=== PATIENT | male | born 1965 | race Caucasian/White ===

== ENCOUNTER 2025-06-10 09:01 | Outpatient (AMB) | payer BC, SELFPAY ==
--- NOTE | 2025-06-10 09:04 | A.PHYSOV_ITS ---
Vital Signs 06/10/25 09:07 Height 5 ft 11 in Weight 245 lb BMI 34.2 Intake Visit Reasons: FOLLOW UP AFTER INJECTION 04/25/2025 Intake Note: Patient is a 59 year old male here for follow up after 04/25/25 L5-S1 ALEJANDRO. Resource Economist Required: No Allergies No Known Allergies Allergy (Verified 06/10/25 09:04) HPI Comments Details: History of Present Illness The patient is a 59-year-old individual presenting with severe sciatica and spinal stenosis. The patient reports experiencing significant relief for two days following an L5-S1 ALEJANDRO on 04/25/2025, with pain reduction by approximately 90%. However, on the third day, the patient experienced a resurgence of pain, described as sciatica, which is constant and predominantly affects the left side, occasionally wrapping around to the front. The patient rates the current pain level as 7 out of 10, noting that it can intensify suddenly, causing near falls. The patient has been taking a combination of Tylenol and Advil, but requires large quantities, which adversely affects the stomach. The patient has undergone multiple spinal injections, with at least a dozen administered previously, but reports limited success in managing the pain. The MRI review indicates severe neuroforaminal stenosis narrowing at two levels, contributing to the patient's symptoms. The patient has a history of a laminectomy performed in 2003. Patient is requesting referral to Neurosurgery. He would also like to consider medication for pain. Patient has failed conservative treatment. Pain Description - Onset: Pain relief for two days followed by resurgence on the third day - Quality: Described as sciatica, constant, and severe - Location: Predominantly affects the left side, occasionally wrapping around to the front - Exacerbating factors: Sudden intensification causing near falls - Relieving factors: Temporary relief from unspecified intervention Procedure: L5-S1 ALEJANDRO 04/25/2025 90% reduction of his pain for 2 days [facility] Surgical History History of cataract surgery (Unknown) H/O shoulder surgery (Unknown) History of neck surgery (Unknown) History of back surgery (Unknown) Hx of laminectomy Social History Alcohol intake: current Alcohol intake frequency: does not drink Patient Tobacco Use Status: Never used Tobacco Use of substances other than those prescribed or required for medical reasons: No Review of Systems Narrative Review of Systems - Musculoskeletal: Reports weakness in both legs, predominantly on the left side - Neurological: Reports sciatica with pain radiating to the left side - Gastrointestinal: Reports stomach issues due to medication Physical Exam Exam Exam: Physical Exam Lumbar Spine: Examination of his lumbar spine, there is no visible swelling or deformity. He is tender to the left lower lumbar facets. He has limited range of motion of the lumbar spine secondary to pain. Special Tests: Lhermittes sign was negative Heel Toe walk is normal Left straight leg raise: Positive left Right straight leg raise: Negative Special tests Vandana test is negative Ganslen's test is negative SI Joint compression test negative Sulema test negative Piriformis stretch is negative Lower Extremities: Full range of motion bilateral lower extremities. No calf pain or edema. Neuro: Sensation: Intact to lower extremities bilaterally Strength L2 (Psoas): 5/5 on the left and 5/5 on the right. L3 (Quads): 5/5 on the left and 5/5 on the right. L4 (Ant tibialis): 5/5 on the left and 5/5 on the right. L5 (EHL) 5/5 on the left and 5/5 on the right. S1 (Gastroc): 5/5 on the left and 5/5 on the right. DTR L4: (Patellar) Left 1 Right 1 S1: (Achilles) Left 1 Right 1 Babinski Downgoing No pathologic clonus. No involuntary movement. Vital Signs: BMI result Body Mass Index 34.2 Assessment & Plan Assessment & Plan (1) Lumbar radiculopathy: Code(s): M54.16 - Radiculopathy, lumbar region Category: Medical (2) Lumbar spondylosis: Code(s): M47.816 - Spondylosis without myelopathy or radiculopathy, lumbar region Category: Medical Plan Pain Management - Affect: Pain significantly impacts daily life and causes distress - Analgesia: Current pain level is 7/10; uses Tylenol and Advil in large quantities - Adverse Effects: Stomach issues due to high intake of pain medication - Activities of Daily Living: Pain causes near falls and affects mobility - Aberrant Drug Related Behaviors: None reported Plan Patient was informed and verbally consented to the use of an ambient scribe for clinic note documentation during this visit. 1. Sciatica The patient has been experiencing severe sciatica, predominantly affecting the left side. Patient did not respond to L5-S1 ALEJANDRO. Recommend trial of left L4-5, L5-S1 transforaminal injection and he is eager to proceed. We will obtain prior authorization for his injection contact him once we have done so. Patient is requesting referral to Neurosurgery which I will place today. I recommend prednisone taper to decrease inflammation. He will not take anti-inflammatories with the prednisone. Uncertain we discussed Thank you for allowing me to participate in the care of your patient. Orders: Referrals Neurosurgery Referral M47.816 - Spondylosis without myelopathy or radiculopathy, lumbar region, M54.16 - Radiculopathy, lumbar region Medications: New prednisone 3 tabs po for 3 days, 2 tabs po for 3 days, 1 tab po X3 days 20 mg PO DAILY 9 tabs 0RF 9 days M47.816 - Spondylosis without myelopathy or radiculopathy, lumbar region, M54.16 - Radiculopathy, lumbar region Coding Level of Care Code Est Pt Level 4 (44343) Diagnoses Lumbar radiculopathy M54.16 Lumbar spondylosis M47.816
[2025-06-10 09:07] VITALS: BMI 34.2
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
--- OUTSIDE RECORDS SUMMARY | 2025-06-10 09:40 | XMS_ITS | Encounter Summary ---
Author Organization [facility] Address [address] [place] [address] Care Team Providers Care Senior Controller Name Role Phone Lisa Bedoya Primary Care Provider [phone] Encounter Details Date Type Department Care Team (Late st Contact Info) Description 01/10/2022 Orders Only [facility] Department of Comprehensive Spine Services [address] [place] [address] Shun Camacho MD [address] [facility] [id number] Pre-op testing (Primary Dx) Social History Tobacco Use Types Packs/Day Years Used Date Smoking Tobacco: Former Cigarettes Q uit: 1989 Smokeless Tobacco: Never Alcohol Use Standard Drinks/Week Comments Yes 0 (1 standard drink = 0.6 oz pur e alcohol) Rarely Sex and Gender Information Value Date Recorded Sex Assigned at Not on file Legal Sex Male 10:45 AM EDT Gender Identity Not on file Sexual Orientation Not on file COVID-19 Exposure Response Date Recorded In the last 10 days, have yo u been in contact with someone who was confirmed or suspected to have Coronavirus/COVID-19? No / Unsure 12/23/2021 1:45 PM EDT documented as of this encounter Plan of Treatment Not on file documented as of this encounter Results * SARS-CoV-2, NAAT (01/19/2022 9:27 AM EDT) SARS-CoV-2 TMA (Vic) Not Detected Not Detected 01/19/2022 4:14 PM EDT [facility] Comment: This test has not been FDA cleared or approved. This test has been authorized by the FDA under an EUA for use by authorized laboratories. Testing is limited to laboratories certified under the Clinical Laboratory Improvement Amendments of 1988 (CLIA), 42 U.S.C. 263a, to perform high complexity tests. The test is only authorized for the duration of the declaration that circumstances exist justifying the authorization of emergency use of in vitro diagnostic tests for detection and/or diagnosis of COVID-19 under Section 564(b)(1) of the Act, 21 U.S.C. 360bbb-3(b)(1), unless the authorization is terminated or revoked sooner. The Aptima SARS-CoV-2 Assay is a nucleic acid amplification test intended for the qualitative detection of nucleic acid of SARS-CoV-2 in nasal and nasopharyngeal swab specimens from patients suspected of COVID-19. Positive results are indicative of the presence of SARS-CoV-2 RNA; clinical correlation with patient history and other diagnostic information is necessary to determine patient infection status. Positive results do not rule out bacterial infection or co-infection with other viruses. A negative result does not rule out COVID-19 and should not be used as the sole basis for treatment or patient management decisions. Negative results must be combined with clinical observations, patient history, and epidemiological information. Fact Sheets for this Emergency Use Authorization assay can be found at the following links: For Healthcare providers: https://www.[employer].com/sites/default/files/-BUP247445%46N129%20Hologic -Apti ma-HCP%.pdf For Patients: https://www.[employer]ut[employer].com/sites/default/files/-UCY346956%12M708%20Hologic -Apti ma-Patient%.pdf Swab Nasopharyngeal structure / Unknown Non-blood Collection / Unknown 01/19/2022 9:27 AM EDT 01/19/2022 9:27 AM EDT Shun Camacho MD LAB MICRO - GENERAL ORDERABL ES NO STAT Final Result [facility] [address] [place] [address], documented in this encounter Visit Diagnoses Diagnosis Pre-op testing- Primary Unspecified pre-operative examination documented in this encounter Care Teams Senior Controller Relationship Specialty Start Date End Date Lisa Bedoya [address] [place] [phone] (Work) PCP - General Family Medicine 09/21/21 documented as of this encounter
--- OUTSIDE RECORDS SUMMARY | 2025-06-10 09:40 | XMS_ITS | Clinical Summary ---
Author Organization [facility] [address] [facility] Building Address [address] [place] [phone] Phone Care Team Providers Care Computer Systems Design Analyst Name Role Phone Isamar Hogan NP Primary Care Provider [phone] Allergies No known active allergies Medications gabapentin (NEURONTIN) 300 mg capsule Take 1 capsule (300 mg total) by mouth 3 (three) times a day. 90 each 2 02/17/2025 Active Surgical History Surgery Date Site/Laterality Comments LUMBAR LAMINECTOMY CERVICAL FUSION ANKLE SURGERY Right SHOULDER SURGERY Left ELBOW SURGERY Left HERNIA REPAIR Family History Medical History Relation Name Comments Hyperlipidemia Mother brain tumor Mother Relation Name Status Comments Mother Social History Tobacco Use Types Packs/Day Years Used Date Smoking Tobacco: Never Smokeless Tobacco: Never Tobacco Cessation:Counseling Given: Not Answered Alcohol Use Standard Drinks/Week Comments Not Currently 0 (1 standard drink = 0.6 oz pur e alcohol) Housing Instability Answer Date Recorde d Are you worried that in the next 2 months you may not have stable housing? No 02/16/2025 Food Access & Nutrition Answer Date Rec orded Do you have access to a vari ety of food including fruits and vegetables? Yes 02/16/2025 Access to Healthcare Answer Date Record ed Within the last 3 months, jumana lott many times did you visit the emergency department for your medical care? 1 02/16/2025 Health Literacy Answer Date Recorded How often do you need to hav e someone help you when you read instructions, pamphlets, or other written material from your doctor or pharmacy? Rarely 02/16/2025 Caregiver: How often do you need to have someone help you when you read instructions, pamphlets, or other written material from your doctor or pharmacy? Not on file 02/16/2025 Financial Risk Answer Date Recorded How hard is it for you to pa y for the very basics like food, housing, medical care, and air conditioning / heating? Very hard 02/16/2025 Transportation Answer Date Recorded Has the lack of transportati on kept you from meetings, work, or from getting things needed for daily living? No Has the lack of transportati on kept you from medical appointments or from getting medications? No 02/16/2025 Social Isolation Answer Date Recorded How often do you feel lonely or isolated from ose around you? Never 02/16/2025 Food Risk Answer Date Recorded Within the past 12 months we worried whether our food would run out before we got money to buy more. Sometimes true 025 Within the past 12 months th e food we bought just didn t last and we didn t have money to get more. Not on file 02/16/2025 Dependent Care Answer Date Recorded Do you need help finding or paying for care for your loved ones. For example, children's entertainer or elderly care for an older adult? Yes 02/16/2025 Education Answer Date Recorded Do you think completing more education or training, like finishing a GED, going to college, or learning a trade, would be helpful for you? No 02/16/2025 Employment and Income Answer Date Recor ded During the last four weeks, have you been actively looking for work? No 02/16/2025 Living Situation Answer Date Recorded What is your living situation? Unrecognized valu e 02/16/2025 Sex and Gender Information Value Date Recorded Sex Assigned at Not on file Legal Sex Male 1:36 PM EDT Gender Identity Male 01/21/2025 1:39 PM EDT Sexual Orientation Not on file Obstetrics History Last Filed Vital Signs Vital Sign Reading Time Taken Comments Blood Pressure 128/80 02/17/2025 11:06 AM EDT A Pulse 71 02/17/2025 11:06 AM EDT Temperature - - Respiratory Rate - - Oxygen Saturation - - Inhaled Oxygen Concentration - - Weight 117 kg (257 lb 6.4 oz) 02/17/2025 11:06 A M EDT Height 180.3 cm (5' 11 ) 02/17/2025 11:06 AM EDT Body Mass Index 35.9 02/17/2025 11:06 AM EDT Plan of Treatment Health Maintenance Due Date Last Done Comments Colorectal Cancer Screening: Colonoscopy 1966 DTaP,Tdap,and Td Vaccines (1 - Tdap) 1985 Hepatitis B Vaccines (1 of 3 - 19+ 3-dose series) 1985 Pneumococcal Vaccine: 50+ Ye ars (1 of 1 - PCV) 2016 Zoster Vaccines (1 of 2) 2016 Cholesterol Screening (Lipid Panel) 01/22/2025 HIV Screening 01/22/2025 Hepatitis C Screening 01/22/2025 COVID-19 Vaccine (1 - 2024-2 6 season) 2025 Influenza Vaccine (#1) 2025 Social Influencers of Health Screening 02/16/2026 02/16/2025 RSV Immunization Adult Patie nts (1 - 1-dose 75+ series) 2041 Depression Screening Completed 02/16/2025 HIB Vaccines Aged Out No longer eligi ble based on patient's age to complete this topic HPV Vaccines Aged Out No longer eligi ble based on patient's age to complete this topic Hepatitis A Vaccines Aged Out No long er eligible based on patient's age to complete this topic IPV Vaccines Aged Out No longer eligi ble based on patient's age to complete this topic MMR Vaccines Aged Out No longer eligi ble based on patient's age to complete this topic Meningococcal ACWY Vaccine Aged Out N o longer eligible based on patient's age to complete this topic Meningococcal B Vaccine Aged Out No l onger eligible based on patient's age to complete this topic RSV Immunization Patients Un elicia 20 months Aged Out No longer eligible b ased on patient's age to complete this topic Varicella Vaccines Aged Out No longer eligible based on patient's age to complete this topic Insurance Care Teams Computer Systems Design Analyst Relationship Specialty Start Date End Date Isamar Hogan NP [address] [place] [id number] PCP - General Primary Care 01/21/25
--- OUTSIDE RECORDS SUMMARY | 2025-06-10 09:41 | XMS_ITS | Clinical Summary ---
Author Organization [facility] Address [address] [place] [address] Care Team Providers Care Utility Tractor Operator Name Role Phone Lisa Bedoya Primary Care Provider [phone] Allergies No known active allergies Medications Trulicity 4.5 mg/0.5 mL pen injector INJECT 0.5 ML SUBCUTANEOUSLY ONCE WEEKLY 2 Active TURMERIC ORAL Take by mouth daily. Active cyclobenzaprin e (FLEXERIL) 10 mg tablet Take 1 tablet (10 mg total) by mouth nightly as needed for muscle spasms. 40 tablet 2 Active Active Problems Problem Noted Date Diagnosed Date S/P cervical spinal fusion 03/04/2022 Cervical myelopathy with cervical radiculopathy 12/28/2021 Lumbar radiculopathy 10/13/2021 History of lumbar laminectomy 10/13/2021 Lumbar pain 10/13/2021 Polyneuropathy 04/20/2018 BEN (generalized anxiety disorder) 10/14/2015 Overview (04/23/2018): Overview: 11/01- better off Clonazepam and on Duloxetine Chronic pain Peyronie's disease Migraine Mild cognitive impairment Family History Medical History Relation Comments No Known Problems Father Brain cancer Mother Relation Status Comments Father Alive Mother Social History Tobacco Use Types Packs/Day Years Used Date Smoking Tobacco: Former Cigarettes Q uit: 1989 Smokeless Tobacco: Never Alcohol Use Standard Drinks/Week Comments Yes 0 (1 standard drink = 0.6 oz pur e alcohol) Rarely Hunger Vital Sign Answer Date Recorded Within the past 12 months, y ou worried that your food would run out before you got the money to buy more. Never true 01/21/20 22 Within the past 12 months, t he food you bought just didn't last and you didn't have money to get more. Never true 01/20/2022 Sex and Gender Information Value Date Recorded Sex Assigned at Not on file Legal Sex Male 10:45 AM EDT Gender Identity Not on file Sexual Orientation Not on file Last Filed Vital Signs Vital Sign Reading Time Taken Comments Blood Pressure 140/73 01/21/2022 3:43 AM EDT Pulse 64 01/21/2022 3:43 AM EDT Temperature 36.6 C (97.9 F) 01/21/2022 3:43 AM EDT Respiratory Rate 15 01/21/2022 4:55 AM EDT Oxygen Saturation 96% 01/21/2022 3:43 AM EDT Inhaled Oxygen Concentration - - Weight 111 kg (245 lb) 02/03/2022 2:04 PM EDT Height 182.9 cm (6') 02/03/2022 2:04 PM EDT Body Mass Index 33.23 02/03/2022 2:04 PM EDT Plan of Treatment Health Maintenance Due Date Last Done Comments CT Colonography 1966 Colonoscopy 1966 Colorectal Cancer Screening 1966 FIT-DNA (Cologuard) 1966 FIT 1966 FOBT 1966 Flex Sigmoidoscopy - 5y 1966 HIV Screening 1966 Hepatitis B Vaccines (1 of 3 - 19+ 3-dose series) 1985 Pneumococcal Vaccine, 50+ Years (1 of 1 - PCV) 2016 Zoster Vaccines (1 of 2) 2016 COVID-19 Vaccine ( - 2024-2 6 season) 2025 Influenza Vaccine (#1) 2025 7, 05/12/2008, 1966 DTaP,Tdap,and Td Vaccines (3 - Td or Tdap) 06/30/2031 06/30/2021, 10/14/2015, 07/17/2001 HPV Vaccines Aged Out No longer eligi ble based on patient's age to complete this topic Hepatitis A Vaccines Aged Out No long er eligible based on patient's age to complete this topic MMR Vaccines Aged Out No longer eligi ble based on patient's age to complete this topic Meningococcal Vaccine Aged Out No kellen soto eligible based on patient's age to complete this topic Medical Devices Implanted Type Area Metal Fabrication Supervisor Device Identifier Shelf Expiration Date Model / Serial / Lot 1cc Bio4 Dbm Nanda (Mfr'D By Cosyforyou) - [id number] Implanted:Qty : 1 on 01/20/2022 at [facility] Bone Spine Cervical [place] Spine 05/20/2023 [id number] / / [id number] 7mm X 14mm X 17mm Tritanium C Anterior Cervical Cage - [id number] Implanted:Qty : 1 on 01/20/2022 at [facility] Ortho - Spinal Implant Spine Cervical Mal Spine 05/22/2023 [id number] / / [id number] 22mm [place] Cervical Plate, 1-Level - [id number] Implanted:Qty : 1 on 01/20/2022 at [facility] Ortho - Spinal Implant Spine Cervical [place] Spine [id number] / / 4mm X 16mm [place] Self-Tapping Variable Screw - [id number] Implanted:Qty : 4 on 01/20/2022 by Shun Camacho MD at [facility] N/A: Spine Cervical [place] Spine [id number] / / Insurance [facility] Advance Directives For more information, please contact: [phone] * Full Code (Latest Code Status on File) Date Activated Date Inactivated Comments 01/20/2022 12:52 PM 01/21/2022 1:25 PM Care Teams Utility Tractor Operator Relationship Specialty Start Date End Date Lisa Bedoya [address] [place] [phone] (Work) PCP - General Family Medicine 09/21/21
== END 2025-06-10 09:21 | disposition home or self-care (01) ==
LOC: HO.HPHYS 09:02
PROVIDERS: PCP Nurse Practitioner Primary Care; Visit Provider Physician Assistant
DX: M54.16 Radiculopathy, lumbar region (principal); M47.816 Spondylosis without myelopathy or radiculopathy, lumbar region
CPT/HCPCS: 99214

== ENCOUNTER 2025-06-27 08:56 | Outpatient (AMB) | payer BC, SELFPAY ==
--- NOTE | 2025-06-27 08:57 | A.SPINEOV_ITS ---
Vital Signs 06/27/25 09:03 Height 5 ft 11 in Weight 245 lb BMI 34.2 Intake Visit Reasons: LBP Intake Note: Mr. Lovell is here today c/o low back pain radiating to left leg with weakness. MRI done at [facility]. Medical Imaging Director Required: No Allergies No Known Allergies Allergy (Verified 06/27/25 09:03) Physical Exam Vital Signs: BMI result Body Mass Index 34.2 Assessment & Plan Assessment & Plan (1) Lumbar radiculopathy: Code(s): M54.16 - Radiculopathy, lumbar region Category: Medical (2) Lumbar spondylosis: Code(s): M47.816 - Spondylosis without myelopathy or radiculopathy, lumbar region Category: Medical Plan Dear Primitivo Thank you for referring Mr Lovell to our office today. 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 It has been going on for some time but the last few years has been particularly intense. The symptoms have gotten to the point now where he has had to basically stopped a lot of the activities that he enjoys. He works on [employer] vehicles and has a very physical job and even lifting the lightest of objects will cause his pain increased significantly. The pain has become so intense he can not even ride a bicycle anymore. If he hits any little bump in the road the pain is so bad he has to get off the bike. He was very fit very active and now has started to gain weight and been unable to do many of the things he enjoys. He has been through conservative treatment in the form of physical therapy. He has also participated in cortisone injections numerous times. The last injection he had was at L5-S1 and it did give him 2-3 days of excellent relief but unfortunately everything came right back. His pain will improve if he leans forward. He is constantly changing positions. He has taken ibuprofen and Tylenol at nausea with no significant improvement. He had an MRI done at [facility] showing foraminal narrowing at L5- S1 with disc degeneration and was referred to us for an evaluation. PMH: He is otherwise healthy with no major medical problems or systemic disease. He does have a history of an anterior cervical fusion, lumbar surgery as outlined above, left shoulder, right ankle and left elbow surgery. No history of abdominal surgery. Social hx: He has not smoke, drink use any recreational drugs Medications: Other than iywj-ofi-npajjwz pain medications, he takes no regular medications. Allergies: None Physical exam: Awake alert oriented no acute distress, has a well healed scar in his midline lumbar region. He has pain right in the midline area with tenderness to palpation, strength is normal in the lower extremities, diminished reflexes at the Achilles bilaterally. He has very hard time standing up straight, tremendous amounts of pain in his back if he has in a vertical position. Imaging review: Lumbar MRI done at [facility] in January of 2025 shows postsurgical changes at L5-S1, he has evidence of moderate disc degeneration primarily on the left as well as severe left L5 foraminal stenosis. There severe facet arthropathy as well. Impression: 60-year-old male history of previous L5-S1 decompression, presents with midline back pain and left leg pain shooting down into his leg and calf. It is aggravated with standing, flexion, walking, activity. He has had to modify most of his daily activities and has stopped doing many of the things he enjoys because of the pain. It is absolutely intolerable at this point. His MRI showing disc degeneration at L5-S1, severe facet arthropathy and severe left L5 foraminal stenosis. He has been through extensive conservative management. The only thing that has really helped his than the injection at the L5-S1 level which does give him 2-[address] Cheung and I met with the patient today. Because of the large component of back pain, we think the best approach would be an L5-S1 anterior lumbar interbody fusion. We discussed this procedure with the gentleman at length, I showed him his MRI and using spine models went over the procedure, recovery, risks benefits etc.. The patient would like to proceed. We will have the patient meet with our approach surgeon Dr. Moody for a preop visit. The patient was given risk and benefits of anterior lumbar interbody fusion surgery including but not limited to infection, hematoma, nerve injury, durotomy, weakness, bowel/bladder injury, persistent pain, and pseudoarthosis or instrumentation failure. In addition to this for males undergoing anterior lumbar fusion there is a low risk of retrograde ejaculation. We also discussed the option to continue with conservative treatment and patient wishes to proceed with surgery. They are aware they should stop NSAIDs 7 days prior to surgery. All questions were answered to the best of our ability. If there is anything about this patients medical history that we have overlooked or concerns you have about us proceeding with surgery we would appreciate any input you can offer Thank you for allowing us to care for your patient. The total time spent with this visit with this patient was 45 minutes reviewing history, physical exam, lumbar imaging review, and implementation of treatment plan or further diagnostic testing Darrian Cheung MD,PhD [facility] Coding Level of Care Code New Pt Level 4 (19600) Diagnoses Lumbar radiculopathy M54.16 Lumbar spondylosis M47.816
[2025-06-27 09:03] VITALS: BMI 34.2
== END 2025-06-27 11:05 | disposition home or self-care (01) ==
LOC: HO.HNS 08:57
PROVIDERS: PCP Nurse Practitioner Primary Care; Referring Provider Physician Assistant; Visit Provider Physician Assistant
DX: M54.16 Radiculopathy, lumbar region (principal); M47.816 Spondylosis without myelopathy or radiculopathy, lumbar region
CPT/HCPCS: 99204

== ENCOUNTER 2025-06-27 08:56 | Outpatient (REF) | payer BC, SELFPAY ==
--- OUTSIDE RECORDS SUMMARY | 2025-06-27 15:20 | XMS_ITS | Encounter Summary ---
[facility] Organization [facility] Address [address] [place] [address] Care Team Providers Care Sorority Mother Name Role Phone Lisa Bedoya Primary Care Provider -x2 Encounter Details Date Type Department Care Team (Late st Contact Info) Description 01/10/2022 Orders Only Critical [facility] hospital Department of [facility] [address] [place] [address] Shun Camacho MD [address] [facility] [place] [id number] Pre-op testing (Primary Dx) Social History Tobacco Use Types Packs/Day Years Used Date Smoking Tobacco: Former Cigarettes 0 Q uit: 1989 Smokeless Tobacco: Never Alcohol [...] Detected Not Detected 01/19/2022 4:14 PM EDT [facility] Comment: This test has not been [...] at the following links: For Healthcare providers: [email or web address]/sites/default/[email or web address] -Apti [email or web address]-[email or web address].pdf For Patients: [email or web address]/sites/default/[email or web address] -Apti ma-Patient%.pdf Swab Nasopharyngeal structure / Unknown Non-blood Collection / Unknown 01/19/2022 9:27 AM EDT 01/19/2022 9:27 AM EDT Shun Camacho MD LAB MICRO - GENERAL ORDERABL ES NO STAT Final Result [facility] [address] [place] [address], documented in this encounter Visit Diagnoses Diagnosis Pre-op testing- Primary Unspecified pre-operative examination documented in this encounter Care Teams Sorority Mother Relationship Specialty Start Date End Date Lisa Bedoya [address] [place] [phone] (Work) PCP - General Family Medicine 09/21/21 documented as of this encounter
--- OUTSIDE RECORDS SUMMARY | 2025-06-27 15:20 | XMS_ITS | Clinical Summary ---
Author Organization [address] Address [address] [place] [address] Phone Care Team Providers Care Ultrasound Sonographer Name Role Phone Isamar Hogan NP Primary Care Provider [phone] Allergies No known active allergies Medications gabapentin (NEURONTIN) 300 mg capsule Take 1 capsule (300 mg total) by mouth 3 (three) times a day. 90 each 2 02/17/2025 Active Encounters Date Type Department Care Team Description 06/18/2025 Telephone Internal Medicine - [address] [phone] Isamar Hogan NP from Last 3 Months Surgical History Surgery Date Site/Laterality Comments LUMBAR [...] do you feel lonely or isolated from th ose around you? Never 02/16/2025 Food Risk [...] care for your loved ones. For example, child care coordinator or elderly care for an older adult? [...] PM EDT Sexual Orientation Not on file Last Filed [...] patient's age to complete this topic [place] [address] [place] [address] Care Teams Ultrasound Sonographer Relationship Specialty Start Date End Date Isamar Hoagn NP [address] [facility] [place] [address] PCP - General Primary Care 01/21/25
--- OUTSIDE RECORDS SUMMARY | 2025-06-27 15:20 | XMS_ITS | Clinical Summary ---
Author Organization [facility] Address [address] [place], [place] [id number] Care Team Providers Care Bingo Cashier Name Role Phone Marquez Fariay Primary Care Provider [phone] Allergies Active Allergy Reactions Criticality Noted Date Comments Oxycodone-Acetaminophen Rash/Dermatitis Low Nausea & vomiting Medications Mnfvvlomnc-ZDBJ-A affeine 50-325-40 MG per capsule TAKE 1-2 [...] Smoking Tobacco: Former Cigarettes 0 Q uit: 01/31/1993 Smokeless Tobacco: Never Alcohol [...] Vaccine 02/14/2025 05/04/2020, , 03/23/2017 COVID-19 Vaccine ( - 2023- season) 2025 RSV Vaccine 50 years and old er and Patients (1 - 1-dose 75+ series) 2041 Insurance [facility] OUT OF [facility] [place] OF STATE - [facility] Care Teams Bingo Cashier Relationship Specialty Start Date End Date Gretta Faria [address] [place] [address] PCP - General 04/11/18
--- OUTSIDE RECORDS SUMMARY | 2025-06-27 15:21 | XMS_ITS | Clinical Summary ---
Author Organization [facility] Address [address] [place] [address] Care Team Providers Care Claims Adjuster Name Role Phone Lisa Bedoya Primary Care Provider [phone] Allergies No known active allergies Medications Trulicity [...] Vaccines (1 of 2) 2016 COVID-19 Vaccine (1 - 2024-2 6 season) [...] this topic Medical Devices Implanted Type Area Apple Turner Device Identifier Shelf Expiration Date Model / Serial / Lot 1cc Bio4 Dbm Nanda (Mfr'D By Runner) - [id number] Implanted:Qty : 1 on 01/20/2022 at [facility] Bone Spine Cervical [place] Spine 05/20/2023 [id number] / / [id number] 7mm X 14mm X 17mm Tritanium C Anterior Cervical Cage - [id number] Implanted:Qty : 1 on 01/20/2022 at [facility] Ortho - Spinal Implant Spine Cervical Mal Spine 05/22/2023 [id number] / / [id number] 22mm [place] Cervical Plate, 1-Level - [id number] Implanted:Qty : 1 on 01/20/2022 at [facility] Ortho - Spinal Implant Spine Cervical Mal Spine [id number] / / 4mm X 16mm [place] Self-Tapping Variable Screw - [id number] Implanted:Qty : 4 on 01/20/2022 by Shun Camacho MD at [facility] N/A: Spine Cervical Mal Spine [id number] / / Insurance [facility] Address: [address] [address] Advance Directives For more information, please contact: [phone] * Full Code (Latest Code Status on File) Date Activated Date Inactivated Comments 01/20/2022 12:52 PM 01/21/2022 1:25 PM Care Teams Claims Adjuster Relationship Specialty Start Date End Date Lisa Bedoya [address] [place] [phone] (Work) PCP - General Family Medicine 09/21/21
== END 2025-06-27 08:57 | disposition home or self-care (01) ==
LOC: HO.HPHYSR 08:56
PROVIDERS: PCP Nurse Practitioner Primary Care; Referring Provider Physician Assistant; Visit Provider Physician Assistant
DX: M47.26 Other spondylosis with radiculopathy, lumbar region (principal)
CPT/HCPCS: 64483; 64484; J2003; J3301; Q9967

== ENCOUNTER 2025-06-27 10:19 | Outpatient (AMB) | payer BC, SELFPAY ==
--- NOTE | 2025-06-27 10:40 | A.PHYSOV_ITS ---
Vital Signs 06/27/25 10:44 BP 137/83 Pulse 70 Temp 98.3 F Intake Visit Reasons: Left Lumbar Transforaminal Epidural L4, L5 Intake Note: Patient is a 60 year old male in office today for a Left L4 and L5 transforaminal epidural injection. Organ Fixer Required: Yes Allergies No Known Allergies Allergy (Verified 06/27/25 10:41) PFSH Surgical History History of cataract surgery (Unknown) H/O shoulder surgery (Unknown) History of neck surgery (Unknown) History of back surgery (Unknown) Hx of laminectomy Social History Household Members: Significant Other Alcohol intake: current Alcohol intake frequency: does not drink Patient Tobacco Use Status: Never used Tobacco Current occupational status: employed Current occupation: multimedia developer Physical Exam Vital Signs: Last Vital Signs Temp 98.3 F 06/27/25 10:44 Pulse 70 06/27/25 10:44 BP 137/83 06/27/25 10:44 Office Procedures Procedure Details: Procedure performed: Left L4 and L5 transforaminal epidural steroid injection Preop diagnosis: Lumbar radiculitis Postop diagnosis: The same Anesthesia: Local After informed consent was obtained, patient was placed on the procedure table in a prone position. Skin over lumbosacral area was prepped and draped in usual sterile manner. Left L4 pedicle was visualized utilizing fluoroscopy. 5 inch 22 gauge spinal needle was introduced percutaneously and advanced towards the pedicle at about 6 o'clock position. Once level of neural foramina was reached, needle placement was verified utilizing 3 cc of Omnipaque contrast solution. Excellent flow through the neural foramina and epidural spread was identified without evidence of vascular uptake. Total volume of 6 cc containing 2 cc of 1% lidocaine, 20 mg of triamcinolone and normal saline solution were injected after negative aspiration for blood and cerebrospinal fluid. Identical procedure was repeated at L5 level. Radiation exposure was documented in the chart. Lumbar transforaminal Epidural Steroid Inj- use with FL Gd: 07413 - Single and 19455 - Each Additional Procedure code (CPT) selection complete Office Meds Kenalog 40 mg/mL suspension for injection Performing Provider: Kale Milian DO Performing Location: [facility] Administered by: Kale Milian DO on 06/27/25 10:49 Dose Route Admin Location Dispensed Lot Number Expiration Date [facility] [place]NOTE 2] Soldering Machine Operator 40 mg epidural 1 mL [id number] AMNEAL BIO SCIEN Total Dispensed Waste 1 mL 0 % lidocaine (PF) 10 mg/mL (1 %) injection solution Performing Provider: Kale Milian DO Performing Location: [facility] Administered by: Kale Milian DO on 06/27/25 10:49 Dose Route Admin Location Dispensed Lot Number Expiration Date [facility] [place]NOTE 2] Soldering Machine Operator 50 mg epidural 5 mL [id number] [place] [employer] Total Dispensed Waste 5 mL 0 % Omnipaque 300 300 mg iodine/mL intravenous solution Performing Provider: Kale Milian DO Performing Location: [facility] Administered by: Kale Milian DO on 06/27/25 10:49 Dose Route Admin Location Dispensed Lot Number Expiration Date [facility] [place]NOTE 2] Soldering Machine Operator 3 mL epidural 10 mL [id number] [employer] ARE Total Dispensed Waste 10 mL 70 % Assessment & Plan Assessment & Plan (1) Lumbar radiculopathy: Code(s): M54.16 - Radiculopathy, lumbar region Category: Medical Plan: Procedure Plan Procedure Orders: Orders FL Gd Lumbar Transforaminal In Today M54.16 - Radiculopathy, lumbar region AMB Lumbar transforaminal Epidural Steroid Injection Today M54.16 - Radiculopathy, lumbar region Coding Level of Care Code Procedure Only Diagnoses Lumbar radiculopathy M54.16 CPT Codes Lumbar transforaminal Epidural Steroid I - CPT TRANSFORM: 86307 - Single ([id number]) Lumbar transforaminal Epidural Steroid I - CPT TRANSFORM: 32166 - Single ([id number])
[2025-06-27 10:44] VITALS: BP 137/83; PULSE 70; TEMP 36.8
== END 2025-06-27 11:28 | disposition home or self-care (01) ==
LOC: HO.HPHYS 10:20
PROVIDERS: PCP Nurse Practitioner Primary Care; Visit Provider Physical Medicine & Rehabilitation
DX: M54.16 Radiculopathy, lumbar region (principal)
CPT/HCPCS: 64483; 64484